=== PATIENT | male | born 1950 | race Caucasian/White ===

== ENCOUNTER 2021-01-14 15:59 | Emergency (ER) | payer MEDICARE, OTHER ==
[2021-01-14] MEDS ORDERED: Lidocaine 1% w/Epinephrine 1:100K 20 ML VIAL ONE (16:14)
[2021-01-14] MEDS ORDERED: Boostrix 0.5 ML (Tdap) VIAL ONE (16:16)
[2021-01-14] MEDS ORDERED: Bacitracin 1 PK ONE (16:41)
== END 2021-01-14 16:51 | disposition home or self-care (01) ==
LOC: NAV ERS 15:59
DX: S61.412A Laceration without foreign body of left hand, initial encounter (principal); I10 Essential (primary) hypertension; W45.8XXA Other foreign body or object entering through skin, initial encounter
CPT/HCPCS: 12032; 90471; 90715; 93005